=== PATIENT | male | born 1995 | race Caucasian/White ===

== ENCOUNTER 2017-11-08 20:54 | Emergency (ER) | payer BC ==
--- NOTE | 2017-11-08 21:39 | CPEKG ---
Heart Rate: 85 RR Interval: 706 P-R Interval: 180 QRSD Interval: 98 QT Interval: 356 QTC Interval: 424 P [place]: 64 QRS [place]: -40 T Wave [place]: 78 EKG Severity - OTHERWISE NORMAL ECG - EKG Impression: SINUS RHYTHM EKG Impression: LEFT AXIS DEVIATION EKG Impression: ST ELEV, PROBABLE NORMAL EARLY REPOL PATTERN Preliminary Awaiting MD Review
[2017-11-08] MEDS ORDERED: NS 1,000 ML IV ONE (21:52)
--- NOTE | 2017-11-08 21:52 | EDPHY ---
H & P Stated Complaint: abd pain, CP, nausea, diarrhea Time Seen by Provider: 11/08/17 21:52 HPI/ROS: HPI CHIEF COMPLAINT: Multiple complaints including abdominal pain, chest pain, nausea, diarrhea, bloody stool HISTORY OF PRESENT ILLNESS: Patient is a very pleasant 22-year-old male, is otherwise healthy without any significant medical history does not take any daily medications he presents emergency room with multiple complaints. Patient states for the past few weeks she has had some lower abdominal pain he describes an achy sensation. Additionally he has had some diarrhea with bloody stools he describes bright red blood. Additionally he also reports some discomfort in his chest on the left side. Nonradiating. Denies any fever. Denies vomiting but did have nausea. Denies significant shortness of breath. Denies pleuritic pain. Decided come the emergency room as he has been having belly pain for few weeks and some chest discomfort Past Medical History: Denies medical history Past Surgical History: Right clavicle surgery. Social History: Denies drugs or tobacco. Occasional alcohol use. [employer] student. From [place]. Family History: ROS REVIEW OF SYSTEMS: A comprehensive 10 point review of systems is otherwise negative aside from elements mentioned in the history of present illness. Exam Constitutional noncontributory, appears well nontoxic, triage nursing summary reviewed, vital signs reviewed, awake/alert. Eyes normal conjunctivae and sclera, EOMI, PERRLA. HENT normal inspection, atraumatic, moist mucus membranes, no epistaxis, neck supple/ no meningismus, no raccoon eyes. Respiratory clear to auscultation bilaterally, normal breath sounds, no respiratory distress, no wheezing. Cardiovascular rate normal, regular rhythm, no murmur, no edema, distal pulses normal. Gastrointestinal mild tender palpation periumbilical, no rebound, no guarding , normal bowel sounds, no distension, no pulsatile mass. Genitourinary no CVA tenderness. Musculoskeletal no midline vertebral tenderness, full range of motion, no calf swelling, no tenderness of extremities, no meningismus, good pulses, neurovascularly intact. Skin pink, warm, & dry, no rash, skin atraumatic. Neurologic awake, alert and oriented x 3, AAOx3, moves all 4 extremities equally, motor intact, sensory intact, CN II-XII intact, normal cerebellar, normal vision, normal speech. Psychiatric normal mood/affect. Heme/Lymph/Immune no lymphadenopathy. Differential diagnosis includes but is not limited to and in no particular order : Bowel obstruction, appendicitis, gallbladder disease, diverticulitis, colitis , enteritis, perforated viscus, gastritis, GERD, esophagitis, urinary tract infection, pyelonephritis, kidney stones Differential diagnosis includes but is not limited to: ACS, atypical chest pain, pneumothorax, pneumonia, pulmonary embolism, aortic dissection, congestive heart failure, tumor, musculoskeletal pain, esophageal pain, GERD, peptic ulcer disease, pancreatitis Medical Decision Making: Plan for this patient IV establishment IV fluid bolus obtain EKG, full hospital monitor check troponin, check electrolytes, stool studies, lactic acid, CT scan abdomen pelvis with IV contrast to help delineate abdominal pain bloody stool. Chest x-ray. Re-evaluation: EKG interpretation by me on record in [employer] system. Impression time of EKG 2136, this is sinus rhythm rate of 85 left axis deviation present. There is early Re-yesika pattern. Otherwise I do not appreciate acute ischemic CT scan abdomen pelvis with IV contrast negative for acute inflammatory process called to me by Dr. Josue. ED x-ray chest one view negative for acute cardiopulmonary disease. 2322: On re-examination the patient is resting comfortably. Abdomen remained soft nontender. Vital signs are stable. His blood work has been reviewed and has normal troponin normal chest x-ray normal CT scan. CBCs reassuring abdominal labs are reassuring. Patient resting comfortably. 1211: Patient resting comfortably. 2nd troponin was negative. Workup reviewed. Discussed with patient. Recommend antacid medication. Additionally recommend following up with Gastroenterology for lower abdominal pain he did intermittent blood in stool. I did request a stool sample here he was unable to do so. Vital signs stable. Patient comfortable discharge planning. Denies any complaints of discharged specifically denies any abdominal pain chest pain or shortness of breath. Source: Patient - Personal History Current Tetanus/Diphtheria Vaccine: Yes - Medical/Surgical History Hx Asthma: No Hx Chronic Respiratory Disease: No Hx Diabetes: No Hx Cardiac Disease: No Hx Renal Disease: No Hx Cirrhosis: No Hx Alcoholism: No Hx HIV/AIDS: No Hx Splenectomy or Spleen Trauma: No Other PMH: denies - Social History Smoking Status: Never smoked Constitutional: Initial Vital Signs Temperature (C) 36.6 C 11/08/17 20:56 Heart Rate 97 11/08/17 20:56 Respiratory Rate 20 18 20:56 Blood Pressure 162/86 H 11/08/17 20:56 O2 Sat (%) 96 11/08/17 20:56 O2 Delivery Mode Room Air Allergies/Adverse Reactions: No Known Allergies Allergy (Unverified 11/08/17 20:59) Home Medications: Medication Instructions Recorded Ranitidine HCl [Zantac] 150 mg PO DAILY #30 tablet 11/08/17 Medical Decision Making - Diagnostics Imaging Results: Imaging Impressions Chest X-Ray 11/08/17 21:53 Impression: Negative portable chest Abdomen CT 11/08/17 22:00 Impression: Negative CT examination of the abdomen and pelvis. Results called to Dr. Keith Marin at 11:00 PM. - Data Points Laboratory Results: Laboratory Results 11/08/17 21:45 11/08/17 21:45 11/08/17 11/08/17 11/08/17 23:56 23:30 22:21 WBC RBC Hgb Hct MCV MCH MCHC RDW Plt Count MPV Neut % (Auto) Lymph % (Auto) [place] % (Auto) Eos % (Auto) Baso % (Auto) Nucleat RBC Rel Count Absolute Neuts (auto) Absolute Lymphs (auto) Absolute Monos (auto) Absolute Eos (auto) Absolute Basos (auto) Absolute Nucleated RBC Immature Gran % Immature Gran # POC Blood Source VENOUS Patient Temperature 37.0 DEGREES DEGREES POC VBG pH 7.46 H (7.31-7.42) POC VBG pCO2 34 mmHg L mmHg (40-44) POC VBG pO2 41 mmHg H mmHg (35-40) POC VBG HCO3 24 mEq/L mEq/L (22-26) POC VBG Total CO2 25 mEq/L mEq/L (21-27) POC VBG Base Excess 0.0 mEq/L mEq/L (-2.5-2.5) POC Mix VBG O2 Sat 79 % H % (65-75) Sodium Potassium Chloride Carbon Dioxide Anion Gap BUN Creatinine Estimated GFR Glucose POC Lactic Acid Jimenez 0.8 mmol/L mmol/L (0.7-2.1) Calcium Magnesium Total Bilirubin Conjugated Bilirubin Unconjugated Bilirubin AST ALT Alkaline Phosphatase POC Troponin I Pending NT-Pro-B Natriuret Pep Total Protein Albumin Lipase Urine Color YELLOW Urine Appearance CLEAR Urine pH 6.0 (5.0-7.5) Ur Specific [place] > 1.060 H (1.002-1.030) Urine Protein NEGATIVE (NEGATIVE) Urine Ketones NEGATIVE (NEGATIVE) Urine Blood NEGATIVE (NEGATIVE) Urine Nitrate NEGATIVE (NEGATIVE) Urine Bilirubin NEGATIVE (NEGATIVE) Urine Urobilinogen NEGATIVE EU EU (0.2-1.0) Ur Leukocyte Esterase NEGATIVE (NEGATIVE) Urine Glucose NEGATIVE (NEGATIVE) 11/08/17 11/08/17 11/08/17 22:00 21:45 21:45 WBC 8.47 10^3/uL 10^3/uL (3.80-9.50) RBC 4.91 10^6/uL 10^6/uL (4.40-6.38) Hgb 15.6 g/dL g/dL (13.7-17.5) Hct 42.4 % % (40.0-51.0) MCV 86.4 fL fL (81.5-99.8) MCH 31.8 pg pg (27.9-34.1) MCHC 36.8 g/dL H g/dL (32.4-36.7) RDW 11.6 % % (11.5-15.2) Plt Count 225 10^3/uL 10^3/uL (150-400) MPV 9.2 fL fL (8.7-11.7) Neut % (Auto) 75.6 % H % (39.3-74.2) Lymph % (Auto) 17.7 % % (15.0-45.0) [place] % (Auto) 5.7 % % (4.5-13.0) Eos % (Auto) 0.5 % L % (0.6-7.6) Baso % (Auto) 0.4 % % (0.3-1.7) Nucleat RBC Rel Count 0.0 % % (0.0-0.2) Absolute Neuts (auto) 6.41 10^3/uL 10^3/uL (1.70-6.50) Absolute Lymphs (auto) 1.50 10^3/uL 10^3/uL (1.00-3.00) Absolute Monos (auto) 0.48 10^3/uL 10^3/uL (0.30-0.80) Absolute Eos (auto) 0.04 10^3/uL 10^3/uL (0.03-0.40) Absolute Basos (auto) 0.03 10^3/uL 10^3/uL (0.02-0.10) Absolute Nucleated RBC 0.00 10^3/uL 10^3/uL (0-0.01) Immature Gran % 0.1 % % (0.0-1.1) Immature Gran # 0.01 10^3/uL 10^3/uL (0.00-0.10) POC Blood Source Patient Temperature POC VBG pH POC VBG pCO2 POC VBG pO2 POC VBG HCO3 POC VBG Total CO2 POC VBG Base Excess POC Mix VBG O2 Sat Sodium 139 mEq/L mEq/L (135-145) Potassium 3.4 mEq/L mEq/L (3.3-5.0) Chloride 103 mEq/L mEq/L (97-110) Carbon Dioxide 25 mEq/l mEq/l (22-31) Anion Gap 11 mEq/L mEq/L (8-16) BUN 15 mg/dL mg/dL (7-23) Creatinine 1.0 mg/dL mg/dL (0.7-1.3) Estimated GFR > 60 Glucose 140 mg/dL H mg/dL (70-100) POC Lactic Acid Jimenez Calcium 9.8 mg/dL mg/dL (8.5-10.4) Magnesium 2.0 mg/dL mg/dL (1.6-2.3) Total Bilirubin 0.9 mg/dL mg/dL (0.1-1.4) Conjugated Bilirubin 0.3 mg/dL mg/dL (0.0-0.5) Unconjugated Bilirubin 0.6 mg/dL mg/dL (0.0-1.1) AST 24 IU/L IU/L (17-59) ALT 30 IU/L IU/L (21-72) Alkaline Phosphatase 62 IU/L IU/L (38-126) POC Troponin I 0.00 ng/mL ng/mL (0.00-0.08) NT-Pro-B Natriuret Pep < 11 pg/mL pg/mL (0-125) Total Protein 7.8 g/dL g/dL (6.3-8.2) Albumin 4.8 g/dL g/dL (3.5-5.0) Lipase 174 IU/L IU/L (23-300) Urine Color Urine Appearance Urine pH Ur Specific [place] Urine Protein Urine Ketones Urine Blood Urine Nitrate Urine Bilirubin Urine Urobilinogen Ur Leukocyte Esterase Urine Glucose Medications Given: Discontinued Medications Sodium Chloride (Ns) 1,000 mls @ 0 mls/hr IV EDNOW ONE; Wide Open PRN Reason: Protocol Stop: 11/08/17 21:53 Last Admin: 11/08/17 22:00 Dose: 1,000 mls Point of Care Test Results: Chemistry 11/08/17 22:00 POC Troponin I 0.00 ng/mL ng/mL (0.00-0.08) Blood Gas/Lactic Acid-Arterial 11/08/17 22:21 POC Blood Source VENOUS Blood Gas/Lactic Acid-Venous 11/08/17 22:21 POC VBG pH 7.46 H (7.31-7.42) POC VBG pCO2 34 mmHg L mmHg (40-44) POC VBG pO2 41 mmHg H mmHg (35-40) POC VBG HCO3 24 mEq/L mEq/L (22-26) POC VBG Total CO2 25 mEq/L mEq/L (21-27) POC VBG Base Excess 0.0 mEq/L mEq/L (-2.5-2.5) POC Mix VBG O2 Sat 79 % H % (65-75) POC Lactic Acid Jimenez 0.8 mmol/L mmol/L (0.7-2.1) Departure - Departure Disposition: Home, Routine, Self-Care Clinical Impression: Abdominal pain Qualifiers: Abdominal location: generalized Qualified Code(s): R10.84 - Generalized abdominal pain Condition: Good Instructions: Acute Abdominal Pain (ED) Additional Instructions: 1. Please follow up with Gastroenterology. 2. Return emergency room if develops worsening abdominal pain fever or vomiting. Referrals: NONE *PRIMARY CARE P,. [Primary Care Provider] - As per Instructions Artemio Melara MD, FACG [Medical Doctor] - As per Instructions Prescriptions: Ranitidine HCl [Zantac] 150 mg PO DAILY #30 tablet
[2017-11-08 21:59] LABS: PLATELET COUNT 225 10^3/uL (150-400)
[2017-11-08] MEDS ORDERED: IOPAMIDOL (ISOVUE-300) 100 ML BTL ONE (22:16)
[2017-11-09 00:27] VITALS: BP 124/70
== END 2017-11-09 00:25 | disposition home or self-care (01) ==
DX: R10.84 Generalized abdominal pain (principal); E86.9 Volume depletion, unspecified
CPT/HCPCS: 83605-PO; 84484-PO; Q9967